=== PATIENT | male | born 1975 | race Caucasian/White ===

== ENCOUNTER 2020-07-23 23:55 | Emergency (ER) | payer MEDICAID ==
[~2020-07-23] VITALS: Ht 188 cm; Wt 150.9 kg
[2020-07-24 01:19] LABS: BASOPHILS # (AUTO) 0.1 X10'3 (0-0.2); BASOPHILS % (AUTO) 1.2 % (0-1); EOSINOPHILS # (AUTO) 0.2 X10'3 (0-0.9); EOSINOPHILS % (AUTO) 2.5 % (0-6); HEMATOCRIT 42.8 % (42.0-52.0); HEMOGLOBIN 14.4 g/dl (14.0-17.9); LYMPHOCYTES # (AUTO) 1.7 X10'3 (1.1-4.8); LYMPHOCYTES % (AUTO) 18.9 % (21-51); MEAN CORPUSCULAR HEMOGLOBIN 29.2 PG (27.0-31.0); MEAN CORPUSCULAR HGB CONC 33.7 g/dL (33.0-36.5); MEAN CORPUSCULAR VOLUME 86.4 FL (78-98); MEAN PLATELET VOLUME 7.4 FL (7.4-10.4); MONOCYTES # (AUTO) 0.7 X10'3 (0-0.9); MONOCYTES % (AUTO) 8.3 % (2-12); NEUTROPHILS # (AUTO) 6.1 X10'3 (1.8-7.7); NEUTROPHILS % (AUTO) 69.1 % (42-75); PLATELET COUNT 342 X10'3 (140-440); RED BLOOD COUNT 4.95 X10'6 (4.70-6.10); RED CELL DISTRIBUTION WIDTH 13.1 % (11.5-14.5); WHITE BLOOD COUNT 8.8 X10'3 (4.5-11.0)
[2020-07-24 01:33] LABS: PARTIAL THROMBOPLASTIN TIME 28 SECONDS (22-32)
[2020-07-24 01:36] LABS: ALANINE AMINOTRANSFERASE 32 U/L (12-78); ALBUMIN 3.9 G/DL (3.4-5.0); ALKALINE PHOSPHATASE 71 IU/L (46-116); ANION GAP 6 (8-16); ASPARTATE AMINO TRANSFERASE 19 U/L (10-37); BILIRUBIN,TOTAL 0.4 MG/DL (0.1-1.0); BLOOD UREA NITROGEN 14 MG/DL (7-18); BUN/CREATININE RATIO 12.8 (5.4-32.0); CALCIUM 9.1 MG/DL (8.5-10.1); CHLORIDE 105 MMOL/L (99-107); CREATININE 1.09 MG/DL (0.60-1.10); GLUCOSE 136 MG/DL (70-104); POTASSIUM 3.6 MMOL/L (3.5-5.1); SODIUM 141 MMOL/L (135-145); TOTAL CARBON DIOXIDE 29.6 MMOL/L (24-32); TOTAL PROTEIN 7.7 G/DL (6.4-8.2); eGFR 73 ML/MIN
[2020-07-24 01:53] LABS: MAGNESIUM 2.1 MG/DL (1.5-2.4)
[2020-07-24 02:00] VITALS: BP 161/111
--- NOTE | 2020-07-24 02:20 | NUR ---
, MELIZA, EULOGIO. SHE REQUEST A CALL WITH UPDATED . # [phone].
== END 2020-07-24 02:50 | disposition home or self-care (01) ==
LOC: ER 23:56
DX: S81.802A Unspecified open wound, left lower leg, initial encounter (principal); S81.801A Unspecified open wound, right lower leg, initial encounter; R60.0 Localized edema; R06.02 Shortness of breath; F15.129 Other stimulant abuse with intoxication, unspecified; G89.29 Other chronic pain; F17.200 Nicotine dependence, unspecified, uncomplicated; Z98.890 Other specified postprocedural states; Z88.0 Allergy status to penicillin; I10 Essential (primary) hypertension; X58.XXXA Exposure to other specified factors, initial encounter; Y93.89 Activity, other specified; Y92.89 Other specified places as the place of occurrence of the external cause; Y99.8 Other external cause status
CPT/HCPCS: 36415; 71045; 80053; 83735; 83880; 84443; 84484; 85025; 85610; 85730; 93005; 99285

== ENCOUNTER 2020-08-23 14:07 | Inpatient (IN) | payer MEDICAID ==
[~2020-08-23] VITALS: Ht 188 cm; Wt 169.0 kg
[~2020-08-23 14:07] MED LIST: etomidate 2mg/ml inj. ONE; rocuronium 10mg/ml inj IV ONE
--- NOTE | 2020-08-23 14:20 | NUR ---
DR Weaver ORDERED ETOMIDATE 40MG, ROCURONIUM 100, VERSED 5 1422 BP 148/113 HR 113, 98% 15L, EMS LINE LEFT AC 1424 ETOMIDATE 40MG - INTUBATED BY DR Weaver 1425 HANNAH 100 ADMIN, + COLOR CHANGE, CONDENSATION 1425 VERSED 5 MG AD MIN, 8.0 TUBE 24 CORNER LIP, BILATERAL CHEST RISE.
[2020-08-23] MEDS ORDERED: MIDAZolam 5mg/ml 2ml vial IV ONE (14:25)
[2020-08-23] MEDS ORDERED: midazolam 100mg in NS 100ml 100 ML IV PRN ×2 (14:35→16:20)
[2020-08-23] MEDS ORDERED: enalaprilat dihydrate 2.5mg/2ml vial IV ONE (14:35)
[2020-08-23] MEDS ORDERED: nitroGLYCERIN-Tridil 50MG/D5W 250 ML IV PRN (14:35)
[2020-08-23] MEDS ORDERED: NORepinephrine inj. 32 MG in normal saline 250ml IV soln 218 ML IV SCH (14:35)
[2020-08-23] MEDS ORDERED: NOREPINEPHRINE BITARTRATE/D5W 250 ML IV SCH (14:40)
[2020-08-23] MEDS ORDERED: NORepinephrine inj. 8 MG in dextrose 5%-water 242 ML IV SCH (14:40)
[2020-08-23] MEDS ORDERED: NORepinephrine 8mg/ 250ml NS 250 ML IV SCH (14:43)
[2020-08-23] MEDS ORDERED: vancomycin/NS 1 GM ADD-VANTAGE 250 ML IV ONE (14:55)
[2020-08-23] MEDS ORDERED: CefTRIAXone 2gm/D5W 50ml BAG 50 ML IV ONE (14:55)
[2020-08-23] MEDS ORDERED: acetaminophen 1,000mg/100ml IV 100 ML IV ONE (14:55)
[2020-08-23 15:01] LABS: ABG BASE EXCESS -6.6 mmol/L (-2.0-2.0); ABG HCO3 21.2 mmol/L (22.0-26.0); ABG OXYGEN SATURATION 97.7 % (94-97); ABG PCO2 (T) 57.8 mmHg (35.0-48.0); ALLEN'S TEST POSITIVE; FCOHb 0.9 % (0.0-3.9); FMetHb 0.4 % (0.0-1.5); FO2Hb 96.4 % (94-97); PATIENT TEMPERATURE 39.9; PEEP 5 cm H2O; RESPIRATORY RATE 20 b/min; TIDAL VOLUME 550 mL; TOTAL HEMOGLOBIN 15.1 G/dl (14.0-18.0)
[2020-08-23 15:12] LABS: BASOPHILS % (AUTO) 0.2 % (0-1); EOSINOPHILS % (AUTO) 0 % (0-6); HEMATOCRIT 37.3 % (42.0-52.0); HEMOGLOBIN 12.3 g/dl (14.0-17.9); LYMPHOCYTES # (AUTO) 0.7 X10'3 (1.1-4.8); LYMPHOCYTES % (AUTO) 4.5 % (21-51); MEAN CORPUSCULAR HEMOGLOBIN 28.9 PG (27.0-31.0); MEAN CORPUSCULAR VOLUME 87.4 FL (78-98); MEAN PLATELET VOLUME 7.8 FL (7.4-10.4); MONOCYTES # (AUTO) 1.7 X10'3 (0-0.9); MONOCYTES % (AUTO) 10.3 % (2-12); NEUTROPHILS # (AUTO) 14.2 X10'3 (1.8-7.7); PLATELET COUNT 311 X10'3 (140-440); RED BLOOD COUNT 4.27 X10'6 (4.70-6.10); RED CELL DISTRIBUTION WIDTH 13.6 % (11.5-14.5); WHITE BLOOD COUNT 16.7 X10'3 (4.5-11.0)
[2020-08-23 15:22] LABS: ALANINE AMINOTRANSFERASE 48 U/L (12-78); ALBUMIN 2.6 G/DL (3.4-5.0); ALBUMIN/GLOBULIN RATIO 0.6 (1.1-1.5); ALKALINE PHOSPHATASE 80 IU/L (46-116); ANION GAP 7 (8-16); ASPARTATE AMINO TRANSFERASE 48 U/L (10-37); BILIRUBIN,TOTAL 0.4 MG/DL (0.1-1.0); BLOOD UREA NITROGEN 14 MG/DL (7-18); BUN/CREATININE RATIO 15.2 (5.4-32.0); CALCIUM 7.8 MG/DL (8.5-10.1); CHLORIDE 100 MMOL/L (99-107); CREATININE 0.92 MG/DL (0.60-1.10); GLUCOSE 150 MG/DL (70-104); SODIUM 133 MMOL/L (135-145); TOTAL PROTEIN 6.8 G/DL (6.4-8.2); eGFR 89 ML/MIN
[2020-08-23] MEDS: propofol 1000mg/100ml bottle 100 ML IV PRN ×5 (15:26→22:30)
[2020-08-23] MEDS ORDERED: heparin 25,000 UNIT/250ml bag 250 ML IV SCH (15:30)
[2020-08-23] MEDS ORDERED: heparin 10,000 units/1 ML INJ IV PRN (15:30)
[2020-08-23] MEDS ORDERED: heparin 10,000 units/1 ML INJ IV ONE ×2 (15:30→15:35)
[2020-08-23 15:35] LABS: C-REACTIVE PROTEIN 10.69 MG/DL (0.0-0.5); FERRITIN 206 NG/ML (26-388); MAGNESIUM 1.7 MG/DL (1.5-2.4)
--- NOTE | 2020-08-23 15:38 | NUR ---
PT'S , MELIZA BUNCH CALLED FOR STATUS UPDATE. WIFT LEFT CONTACT PHONE # [phone]
[2020-08-23 15:43] LABS: LACTATE DEHYDROGENASE 271 U/L (85-227); POTASSIUM 3.8 MMOL/L (3.5-5.1)
[2020-08-23 15:56] LABS: D-DIMER 0.66 MG/L FEU (0-0.50); PARTIAL THROMBOPLASTIN TIME 33 SECONDS (22-32)
--- NOTE | 2020-08-23 16:00 | NUR ---
RESUMED CARE OF PT.
[2020-08-23 16:01] LABS: CLARITY,URINE CLOUDY (Clear); COLOR,URINE YELLOW (Yellow); GLUCOSE, URINE NEGATIVE (Neg); KETONES,URINE NEGATIVE (Neg); LEUKOCYTE ESTERASE ,URINE TRACE (Neg); NITRITES, URINE NEGATIVE (Neg); OCCULT BLOOD,URINE LARGE (Neg); PROTEIN,URINE >=300 mg/dl (Neg); UROBILINOGEN,URINE 0.2 E.U/dL (0.2-1.0)
[2020-08-23] MEDS ORDERED: magnesium 2GM in 50ml NS 50 ML IV PRN (16:20)
[2020-08-23] MEDS ORDERED: ipratropium 0.5 MG/2.5ML nebule NEB PRN (16:20)
[2020-08-23] MEDS ORDERED: sodium phosphate inj. 30 MMOL in dextrose 5%-water 250 ML IV PRN (16:20)
[2020-08-23] MEDS ORDERED: rocuronium 10mg/ml inj IV ONE (16:20)
[2020-08-23] MEDS ORDERED: magnesium Cl slow-release 64mg tablet PO PRN (16:20)
[2020-08-23] MEDS ORDERED: sodium phosphate inj. 15 MMOL in dextrose 5%-water 250 ML IV PRN (16:20)
[2020-08-23] MEDS ORDERED: magnesium hydroxide 30ml (MOM) UD suspension PO PRN (16:20)
[2020-08-23] MEDS ORDERED: ipratropium/albuterol 3ml nebule NEB PRN (16:20)
[2020-08-23] MEDS ORDERED: LIDOcaine 2% 10ml TOPICAL JELLY (Urojet) TP ONE (16:20)
[2020-08-23] MEDS ORDERED: ondansetron/PF 4mg/2ml inj IV PRN (16:20)
[2020-08-23] MEDS ORDERED: acetaminophen 325mg tablet PO PRN ×2 (16:20)
[2020-08-23] MEDS ORDERED: potassium Cl 20 mEq SR tablet PO PRN ×2 (16:20)
[2020-08-23] MEDS ORDERED: magnesium 4gm in 100ml NS 100 ML IV PRN (16:20)
[2020-08-23] MEDS ORDERED: Neutra Phos packet PO PRN (16:20)
--- NOTE | 2020-08-23 16:21 | NUR ---
PT AGGITATED AND FIGHTING VENT, RECEIVED ORDER HANNAH 100MG PER DR CHOWDHURY. ADMIN MEDICATION IVP. DR TOMLINSON CALLED TO ASK TO MAKE SURE TUBE PULLED 1.5 CM, TUBE CURRENTLY MOVED FROM 24 TO 22.5 AT TEETH. WILL CONTINUE TO MONITOR.
[2020-08-23 16:37] LABS: UA COLLECTION TYPE FOLEY CATH
[2020-08-23 16:38] LABS: BACTERIA,URINE 4+ /HPF (Neg); SQUAMOUS EPITHELIAL CELL,UR MODERATE /LPF (FEW)
[2020-08-23 16:39] LABS: WBC,URINE 50-100 /HPF (0-4)
[2020-08-23] MEDS ORDERED: iohexol 350MG/ML 100ml bottle IV ONE (16:47)
[2020-08-23] MEDS: FENTANYL-0.9 % NACL/PF 100 ML IV PRN ×2 (16:53→21:00)
--- NOTE | 2020-08-23 17:26 | NUR ---
Pt's status provided to his mother Mariah.
[2020-08-23] MEDS ORDERED: aztreonam inj. 1,000 MG in normal saline 100ml IV soln 100 ML IV ONE (17:30)
--- NOTE | 2020-08-23 17:40 | NUR ---
BACK FROM CT
[2020-08-23] MEDS: pantoprazole 40 MG vial IV SCH (17:54)
--- NOTE | 2020-08-23 18:05 | NUR ---
UNABLE TO GET PICTURES AT THIS TIME OF RIGHT CALF/FOOT REDNESS AND SWELLING.
[2020-08-23 18:14] LABS: ABG BASE EXCESS -1.4 mmol/L (-2.0-2.0); ABG HCO3 23.8 mmol/L (22.0-26.0); ABG OXYGEN SATURATION 98.5 % (94-97); ABG PCO2 (T) 44.2 mmHg (35.0-48.0); ABG PO2 (T) 138.6 mmHg (75.0-100.0); ALLEN'S TEST POSITIVE; FCOHb 0.7 % (0.0-3.9); FMetHb 0.2 % (0.0-1.5); FO2Hb 97.6 % (94-97); PATIENT TEMPERATURE 38.1; PEEP 5 cm H2O; RESPIRATORY RATE 22 b/min; TIDAL VOLUME 550 mL; TOTAL HEMOGLOBIN 13.4 G/dl (14.0-18.0)
[2020-08-23] MEDS: vancomycin/NS 1 GM ADD-VANTAGE 250 ML IV SCH ×2 (18:29→20:59)
--- NOTE | 2020-08-23 18:30 | NUR ---
MOTHER AT BEDSIDE
[2020-08-23 18:38] LABS: URINE AMPHETAMINE SCREEN POSITIVE (Neg); URINE BARBITUATE SCREEN NEGATIVE (Neg); URINE BENZODIAZEPINES SCREEN NEGATIVE (Neg); URINE CANNABINOID SCREEN POSITIVE (Neg); URINE COCAINE SCREEN NEGATIVE (Neg); URINE METHADONE SCREEN NEGATIVE (Neg); URINE OPIATE SCREEN POSITIVE (Neg); URINE PHENCYCLIDINE SCREEN NEGATIVE (Neg)
--- NOTE | 2020-08-23 18:40 | NUR ---
BS ECHOCARDIOGRAM BEING PERFORMED.
--- NOTE | 2020-08-23 18:54 | NUR ---
ORAL SUCTION, STARTED COUGHING, INCREASED FENTANYL
[2020-08-23] MEDS: metroNIDAZOLE-Flagyl 500mg/NS 100 ML IV SCH (19:54)
[2020-08-23] MEDS ORDERED: vancomycin/NS 1 GM ADD-VANTAGE 250 ML IV SCH (20:00)
[2020-08-23] MEDS: docusate sod 100mg capsule PO SCH (20:00)
[2020-08-23] MEDS: heparin, porcine 5000 units/ml vial SQ SCH (20:00)
--- NOTE | 2020-08-23 20:20 | NUR ---
KRYSTINA, MOTHER [phone]
--- NOTE | 2020-08-23 20:45 | NUR ---
RN Note -Admission Pt arrived from ED on r on vent
[2020-08-23 21:00] VITALS: BP 130/85
--- NOTE | 2020-08-23 21:15 | NUR ---
RN Note -MD Communication Mix Dr. Liriano regarding pt fever. Received orders
[2020-08-23 22:00] VITALS: BP 127/74
[2020-08-23] MEDS: acetaminophen 1,000mg/100ml IV 100 ML IV SCH (22:37)
[2020-08-23 23:00] VITALS: BP 123/80
[2020-08-24] VITALS (24 sets, daily range): BP systolic 105–142; BP diastolic 66–89
[2020-08-24] MEDS: aztreonam inj. 1,000 MG in normal saline 100ml IV soln 100 ML IV SCH ×3 (00:37→16:05)
[2020-08-24] MEDS: metroNIDAZOLE-Flagyl 500mg/NS 100 ML IV SCH ×3 (00:43→16:04)
[2020-08-24 01:25] LABS: BASOPHILS # (AUTO) 0.1 X10'3 (0-0.2); BASOPHILS % (AUTO) 0.5 % (0-1); EOSINOPHILS % (AUTO) 0.3 % (0-6); HEMATOCRIT 36.4 % (42.0-52.0); HEMOGLOBIN 12.3 g/dl (14.0-17.9); LYMPHOCYTES # (AUTO) 0.6 X10'3 (1.1-4.8); LYMPHOCYTES % (AUTO) 3.8 % (21-51); MEAN CORPUSCULAR HGB CONC 33.7 g/dL (33.0-36.5); MEAN CORPUSCULAR VOLUME 86.1 FL (78-98); MEAN PLATELET VOLUME 7.2 FL (7.4-10.4); MONOCYTES # (AUTO) 1.5 X10'3 (0-0.9); MONOCYTES % (AUTO) 9.5 % (2-12); NEUTROPHILS # (AUTO) 13.8 X10'3 (1.8-7.7); NEUTROPHILS % (AUTO) 85.9 % (42-75); PLATELET COUNT 277 X10'3 (140-440); RED BLOOD COUNT 4.23 X10'6 (4.70-6.10); RED CELL DISTRIBUTION WIDTH 13.5 % (11.5-14.5); WHITE BLOOD COUNT 16.1 X10'3 (4.5-11.0)
[2020-08-24 01:43] LABS: ALANINE AMINOTRANSFERASE 51 U/L (12-78); ALBUMIN 2.3 G/DL (3.4-5.0); ALBUMIN/GLOBULIN RATIO 0.6 (1.1-1.5); ALKALINE PHOSPHATASE 75 IU/L (46-116); ANION GAP 10 (8-16); ASPARTATE AMINO TRANSFERASE 36 U/L (10-37); BILIRUBIN,TOTAL 0.5 MG/DL (0.1-1.0); BLOOD UREA NITROGEN 16 MG/DL (7-18); BUN/CREATININE RATIO 13.3 (5.4-32.0); CALCIUM 7.6 MG/DL (8.5-10.1); CHLORIDE 98 MMOL/L (99-107); GLUCOSE 142 MG/DL (70-104); MAGNESIUM 1.9 MG/DL (1.5-2.4); PHOSPHORUS 3.8 MG/DL (2.3-4.5); POTASSIUM 3.5 MMOL/L (3.5-5.1); SODIUM 134 MMOL/L (135-145); TOTAL CARBON DIOXIDE 26.4 MMOL/L (24-32); TOTAL PROTEIN 6.3 G/DL (6.4-8.2); TRIGLYCERIDES 114 MG/DL (20-135); eGFR 65 ML/MIN
[2020-08-24] MEDS: propofol 1000mg/100ml bottle 100 ML IV PRN ×5 (03:16→19:56)
[2020-08-24] MEDS: vancomycin/NS 1 GM ADD-VANTAGE 250 ML IV SCH ×3 (03:16→19:57)
[2020-08-24] MEDS: FENTANYL-0.9 % NACL/PF 100 ML IV PRN ×4 (03:23→19:55)
[2020-08-24 03:39] LABS: ABG BASE EXCESS 1.1 mmol/L (-2.0-2.0); ABG HCO3 25.3 mmol/L (22.0-26.0); ABG OXYGEN SATURATION 97.1 % (94-97); ABG PCO2 (T) 41.1 mmHg (35.0-48.0); ABG PO2 (T) 98.7 mmHg (75.0-100.0); ALLEN'S TEST POSITIVE; FCOHb 0.1 % (0.0-3.9); FMetHb 0.3 % (0.0-1.5); FO2Hb 96.7 % (94-97); PATIENT TEMPERATURE 38.5; PEEP 5 cm H2O; RESPIRATORY RATE 22 b/min; TIDAL VOLUME 550 mL
[2020-08-24] MEDS: acetaminophen 1,000mg/100ml IV 100 ML IV SCH ×5 (04:53→22:41)
[2020-08-24] MEDS: pantoprazole 40 MG vial IV SCH (08:10)
[2020-08-24] MEDS: docusate sod 100mg capsule PO SCH (08:10)
[2020-08-24] MEDS: heparin, porcine 5000 units/ml vial SQ SCH ×2 (08:11→19:56)
--- NOTE | 2020-08-24 09:27 | NUR ---
TF consult: Pt presented to ER with c/o SOB, admit acute respiratory failure requiring intubation and cellulitis of right lower extremity per EMR. Pt documented with OG tube in place, see TF recs below. 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 No BM documented at this time, receiving routine bowel care. Will continue to monitor closely. Recommendations: 1) Continuous TF using Vital High Protein at 95 ml/hr goal rate. To provide 2280 ml total volume, 2280 kcal, 200 g protein and 1915 ml water. 2) Additional water flushes per MD given CHF hx and low serum Na 134 3) PALB q Thursday/; daily wts 4) Routine bowel care Addendum: 08/24/20 at [address] Amended: Links added. Addendum: 08/24/20 at [address] I have reviewed and agree with note by improvement intern. Miranda Rachel, AMANDA
[2020-08-24] MEDS ORDERED: NO HOME MEDS (13:18)
--- NOTE | 2020-08-24 15:45 | NUR ---
Tube feed started per protocol
[2020-08-24] MEDS ORDERED: acetaminophen 325mg tablet OGT PRN ×2 (16:11)
[2020-08-24] MEDS ORDERED: magnesium hydroxide 30ml (MOM) UD suspension OGT PRN (16:12)
[2020-08-24] MEDS ORDERED: Neutra Phos packet OGT PRN (16:12)
[2020-08-24] MEDS ORDERED: POTASSIUM BICARB 20meq eff tab 20 MEQ TABLET.EFF PO PRN (16:13)
[2020-08-24] MEDS ORDERED: POTASSIUM BICARB 20meq eff tab 20 MEQ TABLET.EFF OGT PRN (16:13)
[2020-08-24] MEDS ORDERED: VANCOMYCIN LEVEL IV ONE (18:30)
[2020-08-24] MEDS: lactobacillus rhamnosus 10,000 MMU CELLS/CAPSULE OGT SCH (19:56)
[2020-08-24] MEDS: docusate sodium 100mg/10ml UD cup OGT SCH (19:56)
[2020-08-24] MEDS: mineral oil/petrolatum ophthal oint EACHEYE SCH (20:00)
[2020-08-25] VITALS (24 sets, daily range): BP systolic 107–169; BP diastolic 56–94
[2020-08-25] MEDS: FENTANYL-0.9 % NACL/PF 100 ML IV PRN ×2 (00:41→05:21)
[2020-08-25] MEDS: aztreonam inj. 1,000 MG in normal saline 100ml IV soln 100 ML IV SCH ×4 (00:41→23:41)
[2020-08-25] MEDS: metroNIDAZOLE-Flagyl 500mg/NS 100 ML IV SCH ×4 (00:41→23:41)
[2020-08-25] MEDS: mineral oil/petrolatum ophthal oint EACHEYE SCH ×4 (02:46→20:00)
[2020-08-25] MEDS: propofol 1000mg/100ml bottle 100 ML IV PRN ×2 (02:46→05:07)
[2020-08-25] MEDS: vancomycin/NS 1 GM ADD-VANTAGE 250 ML IV SCH ×3 (02:49→20:30)
[2020-08-25 03:50] LABS: ABG BASE EXCESS 1.3 mmol/L (-2.0-2.0); ABG HCO3 25.7 mmol/L (22.0-26.0); ABG OXYGEN SATURATION 97.7 % (94-97); ABG PCO2 (T) 40.2 mmHg (35.0-48.0); ABG PO2 (T) 104.7 mmHg (75.0-100.0); ALLEN'S TEST POSITIVE; FCOHb 0.3 % (0.0-3.9); FMetHb 0.3 % (0.0-1.5); FO2Hb 97.1 % (94-97); PATIENT TEMPERATURE 37.1; PEEP 5 cm H2O; RESPIRATORY RATE 22 b/min; TIDAL VOLUME 550 mL; TOTAL HEMOGLOBIN 12.3 G/dl (14.0-18.0)
[2020-08-25 03:52] LABS: BASOPHILS % (AUTO) 0.3 % (0-1); EOSINOPHILS # (AUTO) 0.5 X10'3 (0-0.9); EOSINOPHILS % (AUTO) 4.1 % (0-6); HEMATOCRIT 34.9 % (42.0-52.0); HEMOGLOBIN 11.4 g/dl (14.0-17.9); LYMPHOCYTES % (AUTO) 7.7 % (21-51); MEAN CORPUSCULAR HEMOGLOBIN 28.4 PG (27.0-31.0); MEAN CORPUSCULAR HGB CONC 32.7 g/dL (33.0-36.5); MEAN PLATELET VOLUME 7.9 FL (7.4-10.4); MONOCYTES # (AUTO) 1.3 X10'3 (0-0.9); MONOCYTES % (AUTO) 10.8 % (2-12); NEUTROPHILS # (AUTO) 9.6 X10'3 (1.8-7.7); NEUTROPHILS % (AUTO) 77.1 % (42-75); PLATELET COUNT 288 X10'3 (140-440); RED BLOOD COUNT 4.01 X10'6 (4.70-6.10); WHITE BLOOD COUNT 12.4 X10'3 (4.5-11.0)
[2020-08-25] MEDS: acetaminophen 1,000mg/100ml IV 100 ML IV SCH ×4 (04:00→22:00)
[2020-08-25 04:20] LABS: ALANINE AMINOTRANSFERASE 38 U/L (12-78); ALBUMIN/GLOBULIN RATIO 0.5 (1.1-1.5); ALKALINE PHOSPHATASE 85 IU/L (46-116); ANION GAP 8 (8-16); ASPARTATE AMINO TRANSFERASE 24 U/L (10-37); BILIRUBIN,TOTAL 0.4 MG/DL (0.1-1.0); BLOOD UREA NITROGEN 19 MG/DL (7-18); BUN/CREATININE RATIO 18.3 (5.4-32.0); CALCIUM 7.8 MG/DL (8.5-10.1); CHLORIDE 101 MMOL/L (99-107); CREATININE 1.04 MG/DL (0.60-1.10); GLUCOSE 125 MG/DL (70-104); MAGNESIUM 2.2 MG/DL (1.5-2.4); PHOSPHORUS 3.1 MG/DL (2.3-4.5); POTASSIUM 3.5 MMOL/L (3.5-5.1); SODIUM 136 MMOL/L (135-145); TOTAL CARBON DIOXIDE 26.8 MMOL/L (24-32); TOTAL PROTEIN 6.2 G/DL (6.4-8.2); eGFR 77 ML/MIN
[2020-08-25] MEDS: lactobacillus rhamnosus 10,000 MMU CELLS/CAPSULE OGT SCH ×2 (08:30→20:30)
[2020-08-25] MEDS: docusate sodium 100mg/10ml UD cup OGT SCH ×2 (08:30→20:00)
[2020-08-25] MEDS: pantoprazole 40 MG vial IV SCH (08:30)
--- NOTE | 2020-08-25 10:07 | NUR ---
PAGE TO RT; ICU JUAN CARLOS FERNANDO. DR FRITZ SAID TO EXTUBATE, PT REQUIRING MORE PROPOFOL TO REMAIN CALM. I DONT WANT TO SNOW HIM BEFORE WE TRY TO EXTUBATE
[2020-08-25] MEDS: heparin, porcine 5000 units/ml vial SQ SCH ×2 (11:06→20:31)
[2020-08-25] MEDS: dexmedetomidine/D5W 100mL 100 ML IV SCH ×3 (12:40→22:00)
[2020-08-25] MEDS ORDERED: bisacodyl 10mg suppository rectal RC PRN (16:20)
[2020-08-25] MEDS ORDERED: ketorolac trometh. 30mg/ml inj. IV ONE (23:10)
[2020-08-26] VITALS (23 sets, daily range): BP systolic 112–168; BP diastolic 64–107
[2020-08-26] MEDS: mineral oil/petrolatum ophthal oint EACHEYE SCH ×5 (01:07→22:20)
[2020-08-26 03:47] LABS: BASOPHILS % (AUTO) 0.4 % (0-1); EOSINOPHILS # (AUTO) 0.4 X10'3 (0-0.9); EOSINOPHILS % (AUTO) 3.9 % (0-6); HEMATOCRIT 34.2 % (42.0-52.0); HEMOGLOBIN 10.9 g/dl (14.0-17.9); LYMPHOCYTES # (AUTO) 1.2 X10'3 (1.1-4.8); LYMPHOCYTES % (AUTO) 11.1 % (21-51); MEAN CORPUSCULAR HEMOGLOBIN 28.1 PG (27.0-31.0); MEAN CORPUSCULAR VOLUME 87.8 FL (78-98); MEAN PLATELET VOLUME 7.9 FL (7.4-10.4); MONOCYTES # (AUTO) 1.1 X10'3 (0-0.9); MONOCYTES % (AUTO) 9.8 % (2-12); NEUTROPHILS # (AUTO) 8.3 X10'3 (1.8-7.7); NEUTROPHILS % (AUTO) 74.8 % (42-75); PLATELET COUNT 318 X10'3 (140-440); RED CELL DISTRIBUTION WIDTH 14.1 % (11.5-14.5); WHITE BLOOD COUNT 11.1 X10'3 (4.5-11.0)
[2020-08-26] MEDS: vancomycin/NS 1 GM ADD-VANTAGE 250 ML IV SCH ×3 (03:49→18:43)
[2020-08-26] MEDS: dexmedetomidine/D5W 100mL 100 ML IV SCH ×3 (03:54→17:05)
[2020-08-26] MEDS: acetaminophen 1,000mg/100ml IV 100 ML IV SCH ×3 (04:00→13:58)
[2020-08-26 04:01] LABS: ALANINE AMINOTRANSFERASE 40 U/L (12-78); ALBUMIN/GLOBULIN RATIO 0.5 (1.1-1.5); ALKALINE PHOSPHATASE 109 IU/L (46-116); ANION GAP 7 (8-16); ASPARTATE AMINO TRANSFERASE 30 U/L (10-37); BILIRUBIN,TOTAL 0.3 MG/DL (0.1-1.0); BLOOD UREA NITROGEN 16 MG/DL (7-18); BUN/CREATININE RATIO 18.6 (5.4-32.0); CALCIUM 8.4 MG/DL (8.5-10.1); CHLORIDE 105 MMOL/L (99-107); CREATININE 0.86 MG/DL (0.60-1.10); GLUCOSE 124 MG/DL (70-104); MAGNESIUM 2.3 MG/DL (1.5-2.4); PHOSPHORUS 2.9 MG/DL (2.3-4.5); POTASSIUM 3.9 MMOL/L (3.5-5.1); SODIUM 140 MMOL/L (135-145); TOTAL CARBON DIOXIDE 28.3 MMOL/L (24-32); TOTAL PROTEIN 6.3 G/DL (6.4-8.2); eGFR > 90 ML/MIN
--- NOTE | 2020-08-26 06:34 | NUR ---
Problems reprioritized. Patient report given, questions answered & plan of care reviewed with Andrew.
[2020-08-26] MEDS ORDERED: lansoprazole 15mg solutab OGT SCH (08:00)
[2020-08-26] MEDS: heparin, porcine 5000 units/ml vial SQ SCH ×2 (08:47→19:26)
[2020-08-26] MEDS: docusate sodium 100mg/10ml UD cup OGT SCH ×2 (08:47→19:25)
[2020-08-26] MEDS: aztreonam inj. 1,000 MG in normal saline 100ml IV soln 100 ML IV SCH ×3 (08:48→22:54)
[2020-08-26] MEDS: lactobacillus rhamnosus 10,000 MMU CELLS/CAPSULE OGT SCH ×2 (08:48→19:26)
[2020-08-26] MEDS: metroNIDAZOLE-Flagyl 500mg/NS 100 ML IV SCH ×3 (08:55→23:19)
[2020-08-26] MEDS: losartan 50mg tablet PO SCH (16:28)
[2020-08-26] MEDS ORDERED: QUEtiapine 25mg tablet PO ONE (18:35)
--- NOTE | 2020-08-26 22:20 | NUR ---
Pt to be transferred to [facility] 3023U. Problems reprioritized. Patient report given, questions answered & plan of care reviewed with JUAN CARLOS Negron . Addendum: 08/26/20 at 2252 by Hazel Young RN Pt transferred via wheelchair with belongings.
--- NOTE | 2020-08-26 23:00 | NUR ---
patient arrived from icu , wounds were assessed and re dressed . patient is currently resting with no complaints , call pena within reach bed in locked lowest level
[2020-08-26] MEDS: HYDROcodone/acetaminophen 5mg/325mg tablet PO PRN (23:19)
[2020-08-27] VITALS (7 sets, daily range): BP systolic 132–170; BP diastolic 55–107
[2020-08-27] MEDS: vancomycin/NS 1 GM ADD-VANTAGE 250 ML IV SCH ×3 (03:13→20:21)
[2020-08-27 03:39] LABS: BASOPHILS # (AUTO) 0.1 X10'3 (0-0.2); BASOPHILS % (AUTO) 0.5 % (0-1); EOSINOPHILS # (AUTO) 0.3 X10'3 (0-0.9); EOSINOPHILS % (AUTO) 2.7 % (0-6); HEMATOCRIT 34.3 % (42.0-52.0); HEMOGLOBIN 11.3 g/dl (14.0-17.9); LYMPHOCYTES # (AUTO) 1.3 X10'3 (1.1-4.8); LYMPHOCYTES % (AUTO) 10.7 % (21-51); MEAN CORPUSCULAR HEMOGLOBIN 28.5 PG (27.0-31.0); MEAN CORPUSCULAR HGB CONC 32.9 g/dL (33.0-36.5); MEAN CORPUSCULAR VOLUME 86.4 FL (78-98); MEAN PLATELET VOLUME 7.5 FL (7.4-10.4); MONOCYTES # (AUTO) 1.3 X10'3 (0-0.9); MONOCYTES % (AUTO) 10.8 % (2-12); NEUTROPHILS # (AUTO) 9.2 X10'3 (1.8-7.7); NEUTROPHILS % (AUTO) 75.3 % (42-75); PLATELET COUNT 405 X10'3 (140-440); RED BLOOD COUNT 3.97 X10'6 (4.70-6.10); WHITE BLOOD COUNT 12.2 X10'3 (4.5-11.0)
[2020-08-27] MEDS: HYDROcodone/acetaminophen 5mg/325mg tablet PO PRN ×4 (03:45→20:20)
[2020-08-27 03:56] LABS: ALANINE AMINOTRANSFERASE 65 U/L (12-78); ALBUMIN 2.1 G/DL (3.4-5.0); ALBUMIN/GLOBULIN RATIO 0.5 (1.1-1.5); ALKALINE PHOSPHATASE 151 IU/L (46-116); ANION GAP 7 (8-16); ASPARTATE AMINO TRANSFERASE 64 U/L (10-37); BILIRUBIN,TOTAL 0.6 MG/DL (0.1-1.0); BLOOD UREA NITROGEN 10 MG/DL (7-18); BUN/CREATININE RATIO 12.8 (5.4-32.0); CALCIUM 8.2 MG/DL (8.5-10.1); CHLORIDE 106 MMOL/L (99-107); CREATININE 0.78 MG/DL (0.60-1.10); GLUCOSE 133 MG/DL (70-104); PHOSPHORUS 2.4 MG/DL (2.3-4.5); POTASSIUM 3.6 MMOL/L (3.5-5.1); PREALBUMIN 11.8 MG/DL (19-36); SODIUM 141 MMOL/L (135-145); TOTAL CARBON DIOXIDE 27.6 MMOL/L (24-32); TOTAL PROTEIN 6.5 G/DL (6.4-8.2); eGFR > 90 ML/MIN
--- NOTE | 2020-08-27 06:44 | NUR ---
Patient in room PCU 3024. I have received report from JUAN CARLOS Negron and had the opportunity to ask questions and assume patient care.
[2020-08-27] MEDS: metroNIDAZOLE-Flagyl 500mg/NS 100 ML IV SCH (08:26)
[2020-08-27] MEDS: lactobacillus rhamnosus 10,000 MMU CELLS/CAPSULE OGT SCH ×2 (08:26→20:20)
[2020-08-27] MEDS: losartan 50mg tablet PO SCH (08:27)
[2020-08-27] MEDS: heparin, porcine 5000 units/ml vial SQ SCH ×2 (08:29→20:19)
[2020-08-27] MEDS ORDERED: acetaminophen 325mg tablet PO PRN ×2 (08:56→08:57)
[2020-08-27] MEDS ORDERED: magnesium hydroxide 30ml (MOM) UD suspension PO PRN (08:58)
[2020-08-27] MEDS ORDERED: Neutra Phos packet PO PRN (08:58)
[2020-08-27] MEDS: levoFLOXACIN 500mg tablet PO SCH (10:46)
[2020-08-27] MEDS: aztreonam inj. 1,000 MG in normal saline 100ml IV soln 100 ML IV SCH ×3 (10:46→23:23)
[2020-08-27] MEDS: lansoprazole 15mg solutab PO SCH (10:47)
--- NOTE | 2020-08-27 11:05 | NUR ---
Discontinued Galvan catheter, no complications noted. Encouraged pt to void every 30 minutes. Will continue to monitor for signs of discomfort and bladder distention.
--- NOTE | 2020-08-27 13:00 | NUR ---
Discontinued RIJ central line per Dr Hernandez's order, patient tolerated well, no complications noted. Placed sterile petroleum gauze, sterile 2x2 and clear Tegaderm over site. Will continue to assess and monitor for bleeding or any discomfort per pt.
--- NOTE | 2020-08-27 16:30 | NUR ---
Reassessment: Pt extubated 08/25 AM advanced to regular diet PO improving to 50-75% most recent meals since lunch 08/26 partially meeting needs. LBM 08/23 receiving routine colace. IF PO persists would benefit from ONS in order to meet minimum protein/kcal needs give DX. Will continue to monitor. Recommendations: 1) continue regular diet per MD; encourage PO 2) monitor for ONS/additional protein needs pending further PO hx 3) Routine bowel care 4) weekly wts Addendum: 08/27/20 at [address] Amended: Links added.
--- NOTE | 2020-08-27 18:20 | NUR ---
Problems reprioritized. Patient report given, questions answered & plan of care reviewed with JUAN CARLOS Negron. Patient sitting up in bed, watching tv comfortably. No signs of distress at change of shift. All pt needs met at this time.
[2020-08-27] MEDS: docusate sod 100mg capsule PO SCH (20:00)
[2020-08-27] MEDS: hydrALAZINE 20mg/ml inj. IV PRN (20:21)
[2020-08-28 02:00] VITALS: BP 170/108
[2020-08-28] MEDS: HYDROcodone/acetaminophen 5mg/325mg tablet PO PRN ×2 (02:31→08:10)
[2020-08-28] MEDS: hydrALAZINE 20mg/ml inj. IV PRN ×2 (02:31→10:56)
[2020-08-28 04:00] VITALS: BP 189/119
[2020-08-28] MEDS: vancomycin/NS 1 GM ADD-VANTAGE 250 ML IV SCH ×2 (04:09→11:46)
--- NOTE | 2020-08-28 04:20 | NUR ---
PAGER ID: [phone] MESSAGE: [id number] flynn Estrella htn 119/108 post prn hydralazine and Aurelia administered. thank you
[2020-08-28] MEDS ORDERED: metoprolol tartrate 25mg tablet PO ONE (04:30)
--- NOTE | 2020-08-28 06:23 | NUR ---
Patient in room PCU 3024. I have received report from JUAN CARLOS Negron and had the opportunity to ask questions and assume patient care.
[2020-08-28 07:00] VITALS: BP 147/96
[2020-08-28 07:07] LABS: BASOPHILS # (AUTO) 0.1 X10'3 (0-0.2); BASOPHILS % (AUTO) 0.8 % (0-1); EOSINOPHILS # (AUTO) 0.5 X10'3 (0-0.9); EOSINOPHILS % (AUTO) 3.7 % (0-6); HEMATOCRIT 37.8 % (42.0-52.0); HEMOGLOBIN 12.4 g/dl (14.0-17.9); LYMPHOCYTES # (AUTO) 1.6 X10'3 (1.1-4.8); LYMPHOCYTES % (AUTO) 12.7 % (21-51); MEAN CORPUSCULAR HEMOGLOBIN 28.6 PG (27.0-31.0); MEAN CORPUSCULAR HGB CONC 32.9 g/dL (33.0-36.5); MEAN CORPUSCULAR VOLUME 86.9 FL (78-98); MEAN PLATELET VOLUME 7.4 FL (7.4-10.4); MONOCYTES # (AUTO) 1.2 X10'3 (0-0.9); MONOCYTES % (AUTO) 9.3 % (2-12); NEUTROPHILS # (AUTO) 9.2 X10'3 (1.8-7.7); NEUTROPHILS % (AUTO) 73.5 % (42-75); PLATELET COUNT 474 X10'3 (140-440); RED BLOOD COUNT 4.35 X10'6 (4.70-6.10); RED CELL DISTRIBUTION WIDTH 14.2 % (11.5-14.5); WHITE BLOOD COUNT 12.6 X10'3 (4.5-11.0)
[2020-08-28 07:31] LABS: ALANINE AMINOTRANSFERASE 55 U/L (12-78); ALBUMIN 2.2 G/DL (3.4-5.0); ALBUMIN/GLOBULIN RATIO 0.5 (1.1-1.5); ALKALINE PHOSPHATASE 127 IU/L (46-116); ANION GAP 8 (8-16); ASPARTATE AMINO TRANSFERASE 35 U/L (10-37); BILIRUBIN,TOTAL 0.4 MG/DL (0.1-1.0); BLOOD UREA NITROGEN 8 MG/DL (7-18); BUN/CREATININE RATIO 12.5 (5.4-32.0); CALCIUM 8.3 MG/DL (8.5-10.1); CHLORIDE 106 MMOL/L (99-107); CREATININE 0.64 MG/DL (0.60-1.10); GLUCOSE 132 MG/DL (70-104); MAGNESIUM 1.9 MG/DL (1.5-2.4); PHOSPHORUS 3.2 MG/DL (2.3-4.5); POTASSIUM 3.8 MMOL/L (3.5-5.1); SODIUM 142 MMOL/L (135-145); TOTAL CARBON DIOXIDE 28.5 MMOL/L (24-32); TOTAL PROTEIN 6.7 G/DL (6.4-8.2); eGFR > 90 ML/MIN
[2020-08-28] MEDS: lansoprazole 15mg solutab PO SCH (08:08)
[2020-08-28] MEDS: aztreonam inj. 1,000 MG in normal saline 100ml IV soln 100 ML IV SCH (08:08)
[2020-08-28] MEDS: docusate sod 100mg capsule PO SCH (08:09)
[2020-08-28] MEDS: lactobacillus rhamnosus 10,000 MMU CELLS/CAPSULE OGT SCH (08:09)
[2020-08-28] MEDS: heparin, porcine 5000 units/ml vial SQ SCH (08:09)
[2020-08-28] MEDS: losartan 50mg tablet PO SCH (08:09)
[2020-08-28 10:59] VITALS: BP 176/104
[2020-08-28 11:00] VITALS: BP 170/99
[2020-08-28] MEDS: levoFLOXACIN 500mg tablet PO SCH (11:05)
[2020-08-28] MEDS ORDERED: metoprolol tartrate 1mg/ml inj IV ONE (12:00)
--- NOTE | 2020-08-28 12:00 | NUR ---
Paged Dr Hernandez for pt's high BP PAGER ID: [phone] MESSAGE: Yvon Calderón [id number] B Pushed Hydralazine one hour ago. BP resting before PT 177/99 HR96, after ambulating 300ft with PT BP 213/127 HR 109. Please Advise Thanks Isamar Lyn [id number]
[2020-08-28 13:15] VITALS: BP 153/97
--- NOTE | 2020-08-28 13:15 | NUR ---
Paged Dr Hernandez PAGER ID: [phone] MESSAGE: Yvon Calderón [id number] FYI BP 153/97 HR 89. Isamar B [id number]
[2020-08-28] MEDS ORDERED: LEVO500T89 PO (14:06)
[2020-08-28] MEDS ORDERED: LOSA50TA64 PO (14:06)
[2020-08-28] MEDS ORDERED: METO-395 PO (14:06)
--- NOTE | 2020-08-28 15:10 | NUR ---
Patient stable for discharge per MD orders. All instructions were given to pt, all questions were answered appropriately. All belongings collected and sent with pt. PIV discontinued, cannula intact. Tele discontinued, rn telephone triage notified. New prescriptions e-script to [facility] [address], informed pt. Patient already has follow up appt with with PCP on September 03. Wheeled pt to lobby and assisted into personal vehicle with son and .
== END 2020-08-28 15:10 | disposition home or self-care (01) | DRG 720 ==
LOC: ER 14:07 → ED HOLD 16:20 → ICU 2S 20:21 → PCU 3S 08-26 22:45
PROVIDERS: ADMIT Internal Medicine Critical Care Medicine; ATTEND Internal Medicine Critical Care Medicine
PROC: 5A1945Z Respiratory Ventilation, 24-96 Consecutive Hours (ICD-10-PCS; principal; 2020-08-23)
PROC: 0BH17EZ Insertion of Endotracheal Airway into Trachea, Via Natural or Artificial Opening (ICD-10-PCS; 2020-08-23)
PROC: 0D9670Z Drainage of Stomach with Drainage Device, Via Natural or Artificial Opening (ICD-10-PCS; 2020-08-23)
PROC: 02HV33Z Insertion of Infusion Device into Superior Vena Cava, Percutaneous Approach (ICD-10-PCS; 2020-08-23)
PROC: B548ZZA Ultrasonography of Superior Vena Cava, Guidance (ICD-10-PCS; 2020-08-23)
PROC: B32T1ZZ Computerized Tomography (CT Scan) of Left Pulmonary Artery using Low Osmolar Contrast (ICD-10-PCS; 2020-08-23)
PROC: B3201ZZ Computerized Tomography (CT Scan) of Thoracic Aorta using Low Osmolar Contrast (ICD-10-PCS; 2020-08-23)
PROC: B32S1ZZ Computerized Tomography (CT Scan) of Right Pulmonary Artery using Low Osmolar Contrast (ICD-10-PCS; 2020-08-23)
DX: A41.9 Sepsis, unspecified organism (principal); J96.01 Acute respiratory failure with hypoxia; J69.0 Pneumonitis due to inhalation of food and vomit; E87.4 Mixed disorder of acid-base balance; N17.9 Acute kidney failure, unspecified; J96.02 Acute respiratory failure with hypercapnia; I11.0 Hypertensive heart disease with heart failure; I95.9 Hypotension, unspecified; I50.9 Heart failure, unspecified; E66.01 Morbid (severe) obesity due to excess calories; B96.20 Unspecified Escherichia coli [E. coli] as the cause of diseases classified elsewhere; Z20.822 Contact with and (suspected) exposure to COVID-19; I16.1 Hypertensive emergency; F15.129 Other stimulant abuse with intoxication, unspecified; J44.9 Chronic obstructive pulmonary disease, unspecified; G89.29 Other chronic pain; L03.115 Cellulitis of right lower limb; N39.0 Urinary tract infection, site not specified; Z68.42 Body mass index [BMI] 45.0-49.9, adult; Z82.49 Family history of ischemic heart disease and other diseases of the circulatory system; Z88.0 Allergy status to penicillin; Z71.6 Tobacco abuse counseling; Z71.51 Drug abuse counseling and surveillance of drug abuser
CPT/HCPCS: 36415; 36600; 71045; 71275; 76937; 80053; 80202; 80305; 81001; 82728; 82803; 82948; 83605; 83615; 83735; 83880; 84100; 84134; 84145; 84439; 84443; 84478; 84484; 85018; 85025; 85379; 85384; 85610; 85730; 86140; 87040; 87070; 87077; 87081; 87088; 87186; 87502; 87503; 87635; 93005; 93306; 93308; 93970; 93975; 94002; 94003; 94760; 94799; 96365; 96375; 97110; 97116; 97162; 97530; 99291; C9113; C9803; G0378; J0131; J0360; J0696; J1644; J1885; J2250; J2704; J3010; J3370; J3490; Q9967

== ENCOUNTER 2022-02-26 13:04 | Emergency (ER) | payer MEDICAID ==
[~2022-02-26] VITALS: Ht 185.4 cm; Wt 114.0 kg
[~2022-02-26 13:04] MED LIST changes: +LEVO-65 PO; +LOSA50TA64 PO; +METO-395 PO; -etomidate 2mg/ml inj. ONE; -rocuronium 10mg/ml inj IV ONE
[2022-02-26 13:37] VITALS: BP 180/133
== END 2022-02-26 19:45 | disposition left against medical advice (07) ==
LOC: ER 13:04
DX: M54.2 Cervicalgia (principal); Z53.21 Procedure and treatment not carried out due to patient leaving prior to being seen by health care provider

== ENCOUNTER 2022-03-03 13:56 | Emergency (ER) | payer MEDICAID | END 2022-03-03 15:34 | disposition left against medical advice (07) | LOC: ER 13:57 | DX: M54.2 Cervicalgia (principal); Z53.21 Procedure and treatment not carried out due to patient leaving prior to being seen by health care provider ==